=== PATIENT | female | born 1935 | race Caucasian/White ===

== ENCOUNTER 2018-07-14 15:15 | Inpatient (IN) ==
[2018-07-14 16:31] LABS: BASO# 0.03 X1000 (0.0-0.2); BASO% 0.4 % (0.0-0.8); EOS# 0.17 X1000 (0.0-0.7); EOS% 2.4 % (0.0-10.0); HEMATOCRIT 33.3 % (37.0-47.0); HEMOGLOBIN 10.2 g/dL (12.0-16.0); IMM GRAN# 0.01 X1000 (0.0-0.04); IMM GRAN% 0.1 % (0.0-0.5); LYMPH# 1.23 X1000 (1.2-3.4); LYMPH% 17.5 % (20.5-51.1); MCH 29.7 PG (27-31); MCHC 30.6 g/dL (33-37); MCV 96.8 FL (81-99); MONO# 0.35 X1000 (0.11-0.59); NEUT# 5.23 X1000 (1.4-6.5); NEUT% 74.6 % (42.2-75.2); PLT 173 X1000 (130-400); RBC 3.44 XMIL (4.2-5.4); RDW 16.1 % (11.5-14.5); WBC 7.02 X1000 (4.8-10.8)
[2018-07-14 16:53] LABS: ALBUMIN 3.6 g/dL (3.5-5.0); CALCIUM 10.3 mg/dL (8.8-10.2); CREATININE 2.6 mg/dL (0.5-0.9); POTASSIUM 5.2 mmol/L (3.5-5.1); TOTAL BILIRUBIN 0.3 mg/dL (0.20-1.00); TOTAL PROTEIN 6.7 g/dL (6.3-8.3)
[2018-07-14 17:59] LABS: URINE SOURCE CLEAN CATCH
[2018-07-14 18:15] LABS: BILIRUBIN URINE NEGATIVE (NEGATIVE); BLOOD URINE NEGATIVE (NEGATIVE); CLARITY CLEAR (CLEAR); COLOR YELLOW; GLUCOSE URINE NEGATIVE (NEGATIVE); KETONE URINE TRACE mg/dL (NEGATIVE); LEUKOCYTES URINE 2+ (NEGATIVE); NITRITE URINE NEGATIVE (NEGATIVE); PROTEIN URINE 1+(30 mg/dL) mg/dL (NEGATIVE); UROBILINOGEN URINE NORMAL
[2018-07-14 18:19] LABS: URINE EPITHELIAL CELLS >10 /HPF (<10); URINE RBC <10 /HPF (<10); URINE WBC 20-40 /HPF (<10)
[2018-07-14 18:20] LABS: URINE BACTERIA 1+ /HFP; URINE CAST NONE SEEN /LPF; URINE CRYSTAL NONE SEEN /HPF; URINE SMALL ROUND CELLS TRANSITIONAL PRESENT; URINE YEAST NONE SEEN /HPF
[2018-07-14 19:31] LABS: BE -5.3 mmoll (-3.0-3.0); BLOOD TYPE ARTERIAL; HCO3-(ACT) 20.6 mmoll (20.0-26.0); METHB 0.7 % (0.0-1.5); O2(CT) 12.5 mL/dL (15.0-23.0); PCO2(98.6) 50 mmHg (35-45); PO2(98.6) 50 mmHg (60-100); SAMPLE BLOOD; SAO2 91.2 % (95.0-100.0); THB 10.1 g/dL (11.5-17.4); pH(98.6) 7.25 (7.35-7.45)
[2018-07-14 19:34] LABS: ALLEN TEST YES; MODALITY ROOM AIR; O2HB 88.2 % (95.0-99.0)
--- NOTE | 2018-07-14 20:13 | Diag Imaging Result Doc PS360 ---
EXAM: CHEST-PORTABLE 07/14/2018 HISTORY: weak TECHNIQUE: AP portable at 1952 COMMENT: The inspiration is less optimal than on 08/11/2017. There is patchy ill-defined opacity bilaterally which was not present previously. The heart and pulmonary vascularity are stable in appearance. IMPRESSION: Pulmonary edema and/or pneumonia. Electronically signed by Boris De Leon 07/14/2018 8:10 PM
[2018-07-14] MEDS ORDERED: TYLENOL PO PRN (22:44)
[2018-07-14] MEDS ORDERED: ZOFRAN IV PRN (22:44)
[2018-07-15 07:31] LABS: ALBUMIN 3.5 g/dL (3.5-5.0); CALCIUM 10.3 mg/dL (8.8-10.2); CREATININE 2.6 mg/dL (0.5-0.9); MAGNESIUM 1.1 mg/dL (1.5-2.7); POTASSIUM 5.5 mmol/L (3.5-5.1); TOTAL BILIRUBIN 0.4 mg/dL (0.20-1.00); TOTAL PROTEIN 6.4 g/dL (6.3-8.3)
[2018-07-15 07:44] LABS: HEMATOCRIT 32.4 % (37.0-47.0); MCH 30.1 PG (27-31); MCHC 30.9 g/dL (33-37); MCV 97.6 FL (81-99); MPV 10.7 FL (7.4-10.4); RBC 3.32 XMIL (4.2-5.4); RDW 16.1 % (11.5-14.5); WBC 7.13 X1000 (4.8-10.8)
[2018-07-15 07:45] LABS: INR 4.2; PROTIME 42.4 Seconds (11.0-16.0)
[2018-07-15] MEDS ORDERED: NS 1,000 ML IV SCH ×2 (08:15→09:26)
--- NOTE | 2018-07-15 09:01 | EKG Report ---
Test Performed on : 07/14/2018 5:15:37 PM Test Reason : weakness Blood Pressure : / mmHG Vent. Rate : 073 BPM Atrial Rate : 394 BPM P-R Int : 000 ms QRS Dur : 128 ms QT Int : 414 ms P-R-T Axes : 000 004 140 degrees QTc Int : 456 ms Atrial fibrillation. Left bundle branch block Abnormal ECG When compared with ECG of 12-AUG-2017 22:33, Atrial fibrillation. has replaced Sinus rhythm. Vent. rate has decreased BY 60 BPM Left bundle branch block is now present Criteria for Septal infarct are no longer present Borderline criteria for Lateral infarct are no longer present Unconfirmed Result
[2018-07-15] MEDS ORDERED: MAGNESIUM SULFATE 4 GM/S.W.I. 4 GM/100 ML IVPB IV ONE (10:04)
[2018-07-15] MEDS ORDERED: DUONEB (A & A) INH PRN (10:04)
[2018-07-15] MEDS: DUONEB (A & A) INH SCH ×4 (11:05→23:07)
--- NOTE | 2018-07-15 11:08 | Diag Imaging Result Doc PS360 ---
EXAM: CT HEAD W/O CONTRAST INDICATION: ams TECHNIQUE: This exam was performed using automated exposure control, adjustment of mA or kV according to patient size, and/or use of iterative reconstruction technique. COMPARISON: None. FINDINGS: There is patchy low attenuation in the periventricular and subcortical white matter suggesting advanced microangiopathy. There is a likely chronic lacunar infarct involving the internal capsule on the right. There is no definite acute infarct given the limited sensitivity of CT versus MRI. There is no discrete intracranial mass, mass effect, or intracranial hemorrhage. There is minimal chronic appearing axillary sinus mucosal thickening. Surrounding soft tissues and bony structures are grossly unremarkable, otherwise. IMPRESSION: Advanced chronic appearing white matter changes. No definite acute intracranial pathology by CT. Electronically signed by Akash Mckeon 07/15/2018 11:05 AM
--- NOTE | 2018-07-15 11:12 | Diag Imaging Result Doc PS360 ---
EXAM: FLAT/UPRIGHT ABD/1 VIEW CHEST INDICATION: chf evaluation, diarrhea, abd distention TECHNIQUE: 4 views COMPARISON: Chest radiograph dated 07/14/2018 FINDINGS: There is advanced spondylosis. There are nonspecific bowel gas and stool patterns. There is patchy small bowel gas on the right with no significant distention. There is no evidence of large volume free abdominal gas. There is no evidence of organomegaly. There is interstitial thickening that is similar to the previous study suggesting mild edema. There has also now blunting of the costophrenic angles suggesting small effusions. There is increased atelectasis and/or infiltrate at the lung bases. No other new consolidations are identified. Cardiac silhouette is stable. IMPRESSION: 1.Nonspecific abdomen as described. 2.Likely development of small effusions with worsened bibasilar atelectasis and/or infiltrate. Electronically signed by Akash Mckeon 07/15/2018 11:09 AM
[2018-07-15 11:27] LABS: HEMOGLOBIN A1C 5.9 % (4.8-6.0)
[2018-07-15] MEDS: ASPIRIN PO SCH (12:00)
[2018-07-15 12:09] LABS: BE -6.8 mmoll (-3.0-3.0); BLOOD TYPE ARTERIAL; METHB 1.3 % (0.0-1.5); O2(CT) 12.6 mL/dL (15.0-23.0); O2HB 93.8 % (95.0-99.0); PCO2(98.6) 62 mmHg (35-45); PO2(98.6) 73 mmHg (60-100); SAMPLE BLOOD; SAO2 97.6 % (95.0-100.0); THB 9.5 g/dL (11.5-17.4)
[2018-07-15 12:25] LABS: pH(98.6) 7.16 (7.35-7.45)
[2018-07-15 12:26] LABS: ALLEN TEST YES; HCO3-(ACT) 19.6 mmoll (20.0-26.0); MODALITY CANNULA
[2018-07-15] MEDS ORDERED: MAGNESIUM SULFATE 2 GM/S.W.I. 2 GM/50 ML IVPB IV ONE (12:30)
--- NOTE | 2018-07-15 13:28 | Diag Imaging Result Doc PS360 ---
EXAM: US RENAL 2 (RETROPER) COMPLETE 07/15/2018 HISTORY: akosua on ckd TECHNIQUE: Renal ultrasound COMMENT: The bladder is nondistended. There is no evidence of hydronephrosis or mass in the kidneys. The right kidney is 10.3 x 4.7 x 5.4 cm the left is 10.4 x 4.7 x 5.6 cm. The cortices are slightly hyperechoic. IMPRESSION: No evidence of obstructive uropathy. Medical renal disease. Electronically signed by Boris De Leon 07/15/2018 1:26 PM
--- NOTE | 2018-07-15 16:00 | HISTORY AND PHYSICAL ---
PRIMARY CARE PROVIDER: Dr. Hosea Ryan. CHIEF COMPLAINT: Altered mental status. HISTORY OF PRESENT ILLNESS: Mrs. Hunt is a very pleasant 83-year-old female with a history of CKD, chronic atrial fibrillation on anticoagulation, hypothyroidism, who presented to our ER last night with weakness and confusion. Mrs. Hunt, herself, is a poor historian and is somewhat lethargic at this time. She cannot give history. Daughter, who is very knowledgeable of her history, is able to answer questions in detail. Mrs. Hunt has been having increasing lower extremity edema and weakness, she went to Dr. Ryan's office on Thursday and was given increasing doses of Lasix for the edema. She was subsequently called the next day with reports of dehydration and Lasix was discontinued and p.o. fluids were encouraged. Since that time, she has had increasing confusion and worsening lethargy. Throughout the day yesterday Mrs. Hunt's daughter kept receiving calls from home health saying that they could not get Mrs. Hunt out of the bed. She was too sleepy and sedate. So, Mrs. Hunt's daughter finally brought her to the ER. In the ER, she had labs and diagnostics done. Chest x-ray showed pulmonary edema. She had a proBNP of 3400. She had a creatinine of 2.6 and some anemia. Her INR was noted to be 4.2. She was hypoxic with a combined metabolic and respiratory acidosis. Her hemodynamics are stable at this time. She will be admitted for further treatment and evaluation. PAST MEDICAL HISTORY: 1. Chronic kidney disease: Based on history looks to be stages 3 to 4. 2. Chronic atrial fibrillation, on anticoagulation. 3. Left bundle branch block. 4. Borderline diabetes mellitus. 5. Hypertension. 6. Hypothyroidism. 7. Questionable leaky valve. 8. Peripheral neuropathy. PAST SURGICAL HISTORY: She has had some type of colon blockage procedure secondary to obstruction, back surgery x3, hemorrhoidectomy, cholecystectomy. SOCIAL HISTORY: She is recently . She denies tobacco, alcohol, or drug use. She lives alone but her daughter lives right next door. Her daughter is very supportive. FAMILY HISTORY: Noncontributory. REVIEW OF SYSTEMS: Unable to obtain. ALLERGIES: Latex. HOME MEDICATIONS: Allopurinol 300 mg in the a.m., [place] thyroid 30 mg daily, Coumadin 5 mg at bedtime, Lexapro 10 mg daily, memantine 5 mg b.i.d., omeprazole 40 mg daily, Relafen 600 mg daily, triamterene/hydrochlorothiazide one every other day, Welchol 625 mg b.i.d., Zaroxolyn 2.5 mg p.o. a.m., Lyrica 150 mg daily, Neurontin 600 mg p.o. at bedtime. PHYSICAL EXAMINATION: VITAL SIGNS: Blood pressure 111/52, heart rate 77, respiratory rate 20, O2 saturation 95% on 3 L, temperature is 97.4. GENERAL: This is an obese female lying in hospital bed in no acute distress. NEUROLOGICAL: She is quite lethargic. She is sleepy and only opens eyes to verbal stimulus. She is able to tell us where she is but cannot tell us the date nor the current President. She does follow commands without overt focal deficit. She has trouble with random alternating movements and finger to nose. She also has a mild left hand drift on Romberg test. Sensation is intact bilaterally without difference. HEENT: Head is atraumatic and normocephalic. Her pupils are two mm and sluggish bilaterally. Oral mucosa is moist. NECK: Trachea is midline. Neck is supple. There is no cervical adenopathy. CHEST: Decreased at the bases with fine basilar crackles bilaterally. CARDIOVASCULAR: Irregular rate and rhythm. S1 and S2 is noted. There is a 1/6 murmur noted. GASTROINTESTINAL: Slightly distended but nontender. Bowel sounds are hypoactive. EXTREMITIES: 2+ pitting edema bilaterally. DIAGNOSTIC DATA: Morning diagnostics, EKG with atrial fibrillation and left bundle branch block. WBC 7.13, hemoglobin 10, hematocrit 32.4, platelet count 168,000, INR 4.2. ABG yesterday evening - pH 7.25, CO2 50, O2 50, bicarb 20.6, oxyhemoglobin 88.2. Sodium 136, potassium 5.5, chloride 106, C02 22, anion gap 8, BUN 48, creatinine 2.6, glucose 139. Calcium 10.3. Magnesium 1.1. AST 13, ALT 13, and alkaline phosphatase 121. TSH 2.85. UA yesterday evening did not have UTI. ASSESSMENT AND PLAN: 1. Encephalopathy: Unclear as to the etiology. She was hypoxic on arrival to the emergency room yesterday but has since had oxygen. There is no real evidence of infection at this time. We will order a STAT head CT to evaluate for intracranial pathology. Will monitor neuro checks and ultimately check an echocardiogram and carotid ultrasound. 2. Acute kidney injury on chronic kidney disease: There is no renal imaging with ultrasound in her history so we will order a renal ultrasound to look for any type of obstruction. We will also order urine electrolytes as well as an echocardiogram. On physical exam she seems to be volume overloaded. She is slightly acidotic and anemic. Will follow her renal function closely and imaging and go from there. 3. Apparent congestive heart failure: The patient has evidence of pulmonary edema, lower extremity edema, orthopnea, and dyspnea on exertion. Will check an echocardiogram and trend cardiac enzymes. She may need cardiac evaluation but ultimately we can hold on this for now until thorough evaluation has been completed. We will check another chest x- ray and proBNP now. 4. Chronic atrial fibrillation with coagulopathy: No evidence of bleeding at this time. Will hold her Coumadin and monitor daily INR. Atrial fibrillation is rate controlled. TSH within normal limits. Echo is pending. 5. Hypoxemic respiratory failure: The patient had a paO2 of 50 yesterday evening in the emergency room. She has since been put on oxygen. This is likely secondary to her pulmonary edema. We are rechecking a chest x-ray and arterial blood gas now. Again, there does not appear to be any type of infectious process. 6. Borderline diabetes mellitus: Will check a hemoglobin A1c. If needed, add patterned sugars sliding scale insulin. 7. Deep venous thrombosis prophylaxis: Provided with her elevated INR and Coumadin use. Will check INR daily. Once she is normalized will restart her Coumadin. Further recommendations to follow. Dictated by DANIELE Sandoval for Som Curry MD cc: DANIELE Sandoval MD Rodney W. Harney, MD MTDD
[2018-07-15] MEDS ORDERED: ALBUMIN 25% IV ONE (16:17)
[2018-07-15 16:18] LABS: BE -6.4 mmoll (-3.0-3.0); BLOOD TYPE ARTERIAL; HCO3-(ACT) 19.9 mmoll (20.0-26.0); METHB 1.1 % (0.0-1.5); O2(CT) 13.8 mL/dL (15.0-23.0); O2HB 96.2 % (95.0-99.0); PO2(98.6) 149 mmHg (60-100); SAMPLE BLOOD; SAO2 100.1 % (95.0-100.0); SRATE 20 BPM
[2018-07-15 16:22] LABS: pH(98.6) 7.13 (7.35-7.45)
[2018-07-15 16:22] LABS: CALCIUM 10.4 mg/dL (8.8-10.2); CREATININE 2.6 mg/dL (0.5-0.9); MAGNESIUM 2.8 mg/dL (1.5-2.7); POTASSIUM 5.6 mmol/L (3.5-5.1)
[2018-07-15 16:23] LABS: ALLEN TEST YES; MODALITY BI PAP; PCO2(98.6) 70 mmHg (35-45)
--- NOTE | 2018-07-15 22:39 | HISTORY AND PHYSICAL ---
ADDENDUM: Patient seen and examined by myself. Full note dictated and discussed with nurse practitioner. The patient presented to the hospital with increased work of breathing, shortness of breath, and altered mental status. We will admit to the hospital. Have discussed with Dr. Ryan, primary care, the patient's clinical course. She was recently volume overloaded and was given some Lasix. She has also been very depressed over her passing approximately a year ago. It does appears though she has a urinary tract infection. We will admit her to the hospital, place her on antibiotics. We will follow up her acidosis. cc: Som Curry MD MTDD
[2018-07-16] MEDS: DUONEB (A & A) INH SCH ×6 (03:12→22:41)
[2018-07-16 04:13] LABS: BE -7.2 mmoll (-3.0-3.0); BLOOD TYPE ARTERIAL; HCO3-(ACT) 19.3 mmoll (20.0-26.0); METHB 0.6 % (0.0-1.5); O2(CT) 14.2 mL/dL (15.0-23.0); O2HB 97.5 % (95.0-99.0); PO2(98.6) 171 mmHg (60-100); SAMPLE BLOOD; SAO2 100.5 % (95.0-100.0); SRATE 20 BPM; THB 10.1 g/dL (11.5-17.4)
[2018-07-16 04:17] LABS: PCO2(98.6) 74 mmHg (35-45)
[2018-07-16 04:18] LABS: ALLEN TEST YES; MODALITY BI PAP
[2018-07-16 07:04] LABS: HEMOGLOBIN 10.3 g/dL (12.0-16.0); MCH 29.8 PG (27-31); MCHC 30.3 g/dL (33-37); MCV 98.3 FL (81-99); MPV 10.7 FL (7.4-10.4); RBC 3.46 XMIL (4.2-5.4); RDW 16.1 % (11.5-14.5); WBC 9.26 X1000 (4.8-10.8)
[2018-07-16 07:21] LABS: ALBUMIN 3.6 g/dL (3.5-5.0); CALCIUM 10.5 mg/dL (8.8-10.2); CREATININE 3.4 mg/dL (0.5-0.9); MAGNESIUM 2.4 mg/dL (1.5-2.7); POTASSIUM 5.6 mmol/L (3.5-5.1); TOTAL BILIRUBIN 0.4 mg/dL (0.20-1.00); TOTAL PROTEIN 6.4 g/dL (6.3-8.3)
[2018-07-16 07:42] LABS: INR 4.06
[2018-07-16 07:49] LABS: PROTIME 41.3 Seconds (11.0-16.0)
--- NOTE | 2018-07-16 07:50 | Diag Imaging Result Doc PS360 ---
EXAM: CHEST-PORTABLE - 07/16/2018 HISTORY: dyspnea TECHNIQUE: Portable chest COMPARISON: 07/15/2018 FINDINGS: Heart size appears borderline enlarged and stable. There are ill-defined basilar infiltrates, atelectasis, and/or edema which appear to have increased mildly. Upper lung pulmonary vasculature does not appear grossly congested. There is no large pleural effusion identified. Small pleural effusions cannot be excluded. There is no pneumothorax identified. IMPRESSION: Mild increase in basilar opacities. Electronically signed by Jimbo Ji 07/16/2018 7:47 AM
[2018-07-16] MEDS ORDERED: ZOFRAN IV PRN (08:49)
[2018-07-16] MEDS ORDERED: TYLENOL PO PRN (08:49)
[2018-07-16] MEDS ORDERED: NS 1,000 ML IV SCH (09:00)
[2018-07-16] MEDS: ASPIRIN PO SCH (09:28)
[2018-07-16] MEDS: ROCEPHIN 1 GM in NS 50 ML IV SCH (09:42)
[2018-07-16 16:50] LABS: BE -7.8 mmoll (-3.0-3.0); BLOOD TYPE ARTERIAL; HCO3-(ACT) 18.7 mmoll (20.0-26.0); METHB 1.1 % (0.0-1.5); PCO2(98.6) 42 mmHg (35-45); PO2(98.6) 51 mmHg (60-100); SAMPLE BLOOD; SAO2 91.6 % (95.0-100.0); THB 10.4 g/dL (11.5-17.4); pH(98.6) 7.26 (7.35-7.45)
[2018-07-16 16:54] LABS: O2HB 88.5 % (95.0-99.0)
[2018-07-16 16:55] LABS: ALLEN TEST YES; MODALITY CANNULA
--- NOTE | 2018-07-16 21:11 | NEPHROLOGY CONSULTATION ---
DATE: 07/16/2018 REASON FOR CONSULTATION: Acute kidney injury overlying chronic kidney disease. HISTORY OF PRESENT ILLNESS: Ms. Hunt is an 83-year-old white female with history of hypertension and hypothyroidism and diabetes. Chart review finds significant chronic kidney disease, likely stage 4 with baseline creatinine approximately 2.5 to 3. She lost her about 1 year ago and lost another close friend within the last several weeks. She has been doing poorly recently with weakness and confusion, and this was episodic. Ultimately, they sought attention with Dr. Ryan, and laboratory data led him to the conclusion that perhaps she was volume contracted. He advised increased p.o. fluids. At the same time, she had edema and had been treated with furosemide. She did not improve and in fact, became more withdrawn, more weak, and difficult to arouse and ultimately was brought to the emergency room. Her initial evaluation performed on the at 1540 found her blood pressure marginal at 101/57 with room air saturation of 92%. She was started on nasal cannula oxygen and had initial blood gas with moderate CO2 retention with CO2 of 50 with pH of 7.25. Her respiratory failure worsened with falling pH and rising pCO2, and she was treated with BiPAP without much improvement. She was DNR so she was put on the floor on BiPAP. This morning, she self-interrupted the BiPAP and declined to restart it. She was actually more comfortable thereafter, and blood gas performed this afternoon found pCO2 of 42 with a pH of 7.26. She is still requiring supplemental oxygen, however. In this context, her creatinine was 2.6 on presentation and has risen to 3.4 today. Baseline creatinine approximately 2 to 2.4, but her creatinine has been as high as 3 in the past. We were asked to assist with her management. Her fluid balance has been held about even since admission, and she is not receiving diuretics. IV fluids were added this afternoon. Unfortunately, she is not able to provide any history. She is disoriented and cannot hold her thoughts together. Whenever I asked about her recent health, she begins telling stories about when her . These also are incongruous. All history is obtained from the daughter. PAST MEDICAL HISTORY: As above. HOME MEDICATIONS: Include omeprazole, Welchol, nabumetone, gabapentin, metolazone, triamterene/hydrochlorothiazide, allopurinol, warfarin, escitalopram, memantine, levothyroxine. ALLERGIES: Latex. SOCIAL HISTORY: She lives alone, but attended by her daughter. No alcohol or tobacco. FAMILY HISTORY: Otherwise noncontributory. REVIEW OF SYSTEMS: Otherwise noncontributory. PHYSICAL EXAMINATION: Blood pressure 103/44, heart rate 64, respirations 22, afebrile.General: Overweight elderly woman, lying in bed. No distress. Skin is warm and dry. Conjunctivae are pink. Pupils are equal. Oropharynx is moist. Dentition normal. Neck is supple. Trachea is midline. Neck vein distention is present with hepatojugular reflux. PMI is not palpable. Regular rate and rhythm with a gallop and systolic murmur. Lungs have equal breath sounds. No crackles or wheezes. Abdomen: Obese soft, nontender. Bowel sounds present. Extremities have 2 to 3+ edema. No clubbing or cyanosis. Neurologic exam is nonfocal, except as above. IMPRESSION: Acute kidney injury overlying chronic kidney disease. Her urine sodium is low and FENa is low, suggesting prerenal physiology. Her renal ultrasound shows a 10.3 cm right kidney and a 10.4 cm left kidney. She has really modest urine protein. Taken together, I expect that her primary cause of acute kidney injury is cardiogenic in origin. I do not think more IV fluids will be helpful, so those were discontinued. Her Lasix is on hold right now, which I think is appropriate. We will await her echocardiogram to assess her LV function. Her medications were reviewed but no changes were made. I agree with discontinuation of her nonsteroidal anti-inflammatory drug and her diuretics for now. cc: MD ARSLAN Du
--- NOTE | 2018-07-16 21:47 | PROGRESS NOTE ---
DATE: 07/16/2018 SUBJECTIVE: Patient is quite somnolent although she does arouse to noxious stimuli. PHYSICAL EXAM: Vital Signs: Temperature 97.7, pulse 65, respiratory rate 18, BP 100/41. General: Patient is awake when stimulated and frequently falls back to sleep. Currently on BiPAP. He is in mild respiratory distress. Has very shallow breathing. HEENT: Normocephalic. Neck: Supple. Cardiovascular: Regular rate. No murmurs. Chest: Very shallow breathing. No wheezing. No crackles. Abdomen: Soft, obese, nondistended. Extremities: Moves all extremities. Neurologic: Patient is easily awakened but falls asleep quickly. ASSESSMENT: 1. Metabolic encephalopathy. 2. Hypercapnic respiratory failure. 3. Hyperkalemia. 4. Acute on chronic renal failure. Creatinine continues to climb, at 3.4. 5. Hyperglycemia. 6. Chronic atrial fibrillation with coagulopathy. 7. Hyperglycemia. PLAN: Will restart patient's IV fluids as her BUN and creatinine both continue to climb, although slightly. She does not wake up and eat or drink anything. Did attempt again to discuss with Ms. Hunt's daughter the gravity of her situation. Her daughter does not appear to grasp this. I discussed with her the BiPAP is also an extra heroic measure. We will continue to attempt to awaken her. I am certainly concerned that her overall depressive symptoms may be worsening her current respiratory drive. cc: Som Curry MD
--- NOTE | 2018-07-16 23:37 | ECHO REPORT ---
ORDER DATE: 07/16/2018 MEASUREMENTS: Septal thickness 1.1, left ventricular internal diameter in diastole 4.0, posterior wall thickness 1.0, left ventricular internal diameter in systole 2.4, left atrium 3.4, aortic root 3.0. SUMMARY: 1. Technically difficult study due to limited acoustic window quality. Intravenous echocontrast agent Optison was utilized to enhance endocardial definition. 2. Mild sclerosis of trileaflet aortic valve demonstrated, with adequate aortic valve opening evident. Peak gradient across the aortic valve is 12 mmHg. There is trace aortic regurgitation. Mild thickening of mitral valve leaflets demonstrated, with adequate mitral valve opening evident. Tricuspid and pulmonic valves are without evidence of structural abnormality, with very mild tricuspid regurgitation and trace pulmonic insufficiency. The estimated systolic PA pressure by Doppler is 35 mmHg. The aortic root is normal in size. 3. Normal left ventricular dimensions demonstrated. Estimated left ventricular ejection fraction appears to be at least 65%. No regional wall motion abnormalities are evident. Left atrium is normal in size. The right atrium and right ventricle are grossly normal in size. 4. No pericardial effusion. 5. Appearance of inferior vena cava suggests elevated central venous pressure. 6. Rhythm during study appears to be atrial fibrillation. CONCLUSIONS: 1. Technically difficult study. 2. Mild aortic valve sclerosis without stenosis, with trace aortic regurgitation. 3. Very mild tricuspid regurgitation, with estimated systolic pulmonary artery pressure 35 mmHg. 4. Estimated left ventricular ejection fraction at least 65%. 5. Elevated central venous pressure suggested. 6. Rhythm during study appears to be atrial fibrillation. cc: MD Pastor Velez CRNP
[2018-07-17] MEDS: DUONEB (A & A) INH SCH ×5 (02:43→20:23)
[2018-07-17 06:35] LABS: HEMATOCRIT 30.5 % (37.0-47.0); HEMOGLOBIN 9.3 g/dL (12.0-16.0); MCH 29.4 PG (27-31); MCHC 30.5 g/dL (33-37); MCV 96.5 FL (81-99); MPV 11.1 FL (7.4-10.4); RBC 3.16 XMIL (4.2-5.4); RDW 15.8 % (11.5-14.5); WBC 8.36 X1000 (4.8-10.8)
[2018-07-17 06:49] LABS: INR 4.11
[2018-07-17 07:03] LABS: ALBUMIN 3.5 g/dL (3.5-5.0); CALCIUM 9.3 mg/dL (8.8-10.2); CREATININE 4.4 mg/dL (0.5-0.9); PHOSPHORUS 5.1 mg/dL (2.7-4.5); POTASSIUM 5.1 mmol/L (3.5-5.1)
[2018-07-17 07:21] LABS: PROTIME 41.7 Seconds (11.0-16.0)
[2018-07-17] MEDS: ASPIRIN PO SCH (08:08)
[2018-07-17] MEDS: CLINDAMYCIN 600 MG/D5W 600 MG/50 ML IVPB IV SCH ×3 (08:08→16:34)
[2018-07-17] MEDS: ROCEPHIN 1 GM in NS 50 ML IV SCH (08:09)
--- NOTE | 2018-07-17 14:45 | NEPHROLOGY PROGRESS NOTE ---
DATE: 07/17/2018 IMPRESSION AND PLAN.: I have reviewed Ms. Hunt's exam and laboratory data for this morning. Though I expected that she may have cardiorenal syndrome and cardiogenic shock, her LVEF was normal. Filling pressures appear to be above normal. As such, I do not think giving IV fluids will be helpful. Furthermore, diuretic therapy would not particularly add anything as her respiratory status is improved. Her mental status is worse today. She is somnolent. She will arouse with verbal and tactile stimuli, but immediately closes her eyes again and she is nonverbal. Her creatinine has risen 1 point over the last 24 hours suggesting that she has essentially anuric renal failure. Given all the above, she presumably has acute tubular necrosis overlying her stage IV chronic kidney disease. I had a prolonged conversation with both daughters discussing her current status and our treatment options moving forward. Given her poor functional status and her advanced chronic kidney disease at baseline, her likelihood of recovery from acute kidney injury is below average. Also, her capacity to undergo dialysis and to experience reasonable recovery following a prolonged hospitalization and rehabilitation is low. Given that, I do not think dialysis would improve her outcome in a way that outweighs the costs in terms of pain and suffering in the short term and poor recovery in the longterm. As such, I do not recommend pursuing hemodialysis. However, given her declining functional status and anuric acute kidney injury, she is likely to have progressive uremia and within days. Again, we discussed this frankly. I also discussed the role of cardiopulmonary resuscitation given the status of her kidney disease. They understand that CPR and respiratory support and cardiac defibrillation does not make sense, and we will change her status to DNR 1. I recommended that we continue the current level of care, that we should limit her blood draws to once a day. Continue antibiotics, oxygen, pulmonary toilet, etc. They are in agreement with these constraints. cc: Luis Neumann MD
--- NOTE | 2018-07-17 17:17 | PROGRESS NOTE ---
DATE: 07/17/2018 SUBJECTIVE: Patient herself has no complaints. She is easily awakened but then falls back asleep pretty quickly. PHYSICAL EXAMINATION: Vital Signs: Reviewed. Temp 97.4 degrees, pulse 60, respiratory 20, BP 100/41. General: Patient is awake, very pleasant when she is awake. HEENT: Normocephalic. Neck: Supple. CARDIOVASCULAR: Regular rate. Chest: Decreased breath sounds but equal bilaterally. Abdomen: Soft, obese. Extremities: She does move all extremities. She has no focal weakness. Neurologic: Patient is somnolent, will arouse when stimulated but quickly falls back asleep. ASSESSMENT: 1. DNR level 1. 2. Chronic kidney disease with acute renal failure. 3. Diabetes. 4. Respiratory failure. 5. Adult failure to thrive. 6. Hypertension. 7. Hypothyroidism. PLAN: We will continue patient in the hospital. Discussed her current care with Nephrology who feels as though she is an acute renal failure and certainly could be developing uremia. Very concerned that Ms. Hunt will not improve from her current situation. We will continue to follow. Discussed with the daughter on multiple occasions the severity of Ms. Hunt's current condition. They have decided to change from DNR 2 to a full DNR. We will continue to follow and adjust as needed. cc: Som Curry MD
[2018-07-18] MEDS: DUONEB (A & A) INH SCH ×7 (00:24→23:17)
[2018-07-18] MEDS: CLINDAMYCIN 600 MG/D5W 600 MG/50 ML IVPB IV SCH ×4 (01:09→23:39)
[2018-07-18 07:02] LABS: HEMATOCRIT 30.8 % (37.0-47.0); HEMOGLOBIN 9.4 g/dL (12.0-16.0); MCH 29.6 PG (27-31); MCHC 30.5 g/dL (33-37); MCV 96.9 FL (81-99); MPV 11.2 FL (7.4-10.4); RBC 3.18 XMIL (4.2-5.4); RDW 15.8 % (11.5-14.5); WBC 8.61 X1000 (4.8-10.8)
--- NOTE | 2018-07-18 07:25 | Diag Imaging Result Doc PS360 ---
EXAM: CHEST-PORTABLE HISTORY: Dyspnea TECHNIQUE: Portable chest single view COMPARISON: 07/16/2018 FINDINGS: Good inspiratory effort. The heart remains enlarged. Pulmonary edema persists. There is a small left pleural effusion with basilar atelectasis. There may be underlying infiltrates as well. IMPRESSION: No interval improvement. Electronically signed by Rick Fernandes 07/18/2018 7:23 AM
[2018-07-18 07:54] LABS: ALBUMIN 3.4 g/dL (3.5-5.0); CALCIUM 9.4 mg/dL (8.8-10.2); CREATININE 4.9 mg/dL (0.5-0.9); PHOSPHORUS 6.8 mg/dL (2.7-4.5); POTASSIUM 5.6 mmol/L (3.5-5.1)
[2018-07-18 07:59] LABS: INR 4.39; PROTIME 43.9 Seconds (11.0-16.0)
[2018-07-18] MEDS: ROCEPHIN 1 GM in NS 50 ML IV SCH (10:52)
[2018-07-18] MEDS: ASPIRIN PO SCH (18:39)
--- NOTE | 2018-07-18 22:34 | PROGRESS NOTE ---
DATE: 07/18/2018 SUBJECTIVE: Patient actually is much more alert today. She does arouse to verbal stimuli and does actually respond to questions briefly. PHYSICAL EXAMINATION: Vital Signs: Temperature 97.4 degrees, pulse 65, respiratory 18, BP 91/54, saturation 93% on 4 L. General: Patient is awake, obese female who currently is in no respiratory distress. HEENT: Normocephalic. Neck: Supple. Cardiovascular: Regular rate. Chest: Decreased but equal breath sounds. Nonlabored. Abdomen: Soft. Extremities: Moves all extremities. ASSESSMENT: 1. Acute on chronic renal failure. The patient's renal function continues to worsen. 2. Hypoxic respiratory failure. 3. Hyperkalemia. 4. Chronic atrial fibrillation with coagulopathy. PLAN: Continue patient in the hospital. Continue to attempt comfort care and we will follow. cc: Som Curry MD
[2018-07-19] MEDS: DUONEB (A & A) INH SCH ×4 (03:27→15:48)
[2018-07-19] MEDS ORDERED: SALINE LOCK IV FLUID XX ONE (10:35)
[2018-07-19] MEDS ORDERED: MORPHINE IV PRN ×2 (10:37→19:10)
[2018-07-19] MEDS: TRANSDERM-SCOP TD SCH (13:27)
--- NOTE | 2018-07-19 15:46 | PROVIDER DOCUMENTATION ---
This chart was entered by Laura Moran Scribe, acting as scribe for Chava Leavitt MD. HPI-General Adult - General Chief Complaint: General Adult Stated Complaint: GENERAL ADULT Time Seen by Provider: 07/14/18 19:11 Source: patient, family Allergies/Adverse Reactions: Patient Allergies Allergy/AdvReac Type Severity Reaction Status Date / Time latex Allergy RASH Verified 07/14/18 15:51 Home Medications: Home Medication List Medication Instructions Recorded Confirmed Last Taken Type Colesevelam [Welchol] 625 mg PO BID 05/31/14 07/14/18 07/14/18 History 625mg Omeprazole 40 mg PO DAILY@0700 05/31/14 07/14/18 07/14/18 History 40mg Nabumetone [Relafen] 600 mg PO DAILY 08/12/17 07/14/18 07/14/18 History 600mg Gabapentin [Neurontin] 600 mg PO QHS #30 tab 08/17/17 07/14/18 07/13/18 Rx 600mg Pregabalin [Lyrica] 150 mg PO DAILY capsule 08/19/17 07/14/18 07/14/18 Rx 150mg Allopurinol 300 mg PO QAM 07/14/18 07/14/18 07/14/18 History 300mg Metolazone [Zaroxolyn] 2.5 mg PO QAM 07/14/18 07/14/18 07/14/18 History 2.5mg Triamterene/Hydrochlorothiazid 1 ea PO EVERY OTHER DAY 07/14/18 07/14/18 Unknown History [Triamterene-Hctz 37.5-25 mg Cp] Warfarin [Coumadin] 5 mg PO QHS 07/14/18 07/14/18 07/14/18 History 5mg Escitalopram [Lexapro] 10 mg PO DAILY 07/15/18 07/15/18 Unknown History Levothyroxine [Synthroid] 30 mcg PO DAILY 07/15/18 07/15/18 Unknown History Memantine HCl 5 mg PO BID 07/15/18 07/15/18 Unknown History - History of Present Illness -Gen Adult Nature of Presenting Problems: 83 y/o female presents to ED with increasing weakness, confusion, lethargy x 5 days Location of Pain/Injury: reports: generalized Pain Radiation: reports: no radiation Quality of Pain: reports: none Severity: reports: moderate Onset/Duration: reports: 5 days ago Timing: reports: still present Context/Activities at Onset: reports: none Modifying Factors: improves with: nothing Associated Symptoms: reports: weakness, other (lethargy, confusion) Similar Symptoms Previously?: No Recently seen or treated by another doctor?: Yes (PCP) Review of Systems - Adult - REVIEW OF SYSTEMS - ADULT Constitutional: reports: other (confusion, lethargy). denies: chills, fever Eyes: reports: no symptoms reported Ears, Nose, Mouth & Throat: reports: no symptoms reported Cardiovascular: denies: chest pain, palpitations Respiratory: denies: cough, shortness of breath Gastrointestinal: denies: abdominal pain, diarrhea, nausea, vomiting Genitourinary: reports: no symptoms reported Musculoskeletal: denies: back pain, joint pain Integumentary: reports: no symptoms reported Neurological: reports: other (weakness). denies: dizziness/vertigo, seizure Psychiatric: reports: no symptoms reported Endocrine: reports: no symptoms reported Hematologic/Lymphatic: reports: no symptoms reported Allergic/Immunologic: reports: no symptoms reported All Other Systems: Reviewed and Negative Past History - Adult - PAST MEDICAL HISTORY-ADULT Review of Records: reports: Old Records Reviewed, Nursing Assessment Review, Medications Reviewed, Social history reviewed & non-contributory. Major Childhood Illnesses: reports: denies history Cardiovascular: reports: A-Fib, HTN, hyperlipidemia Respiratory: reports: denies history Gastrointestinal: reports: denies history Obstetrical/Gynecological: reports: denies history Genitourinary: reports: denies history, kidney disease Musculoskeletal: reports: denies history, other (neuropathy) Neurological: reports: denies history Endocrine/Immune: reports: Diabetes, thyroid disorder (hypo) Other Conditions: reports: denies history - PRIOR SURGERIES/PROCEDURES Surgical/Procedure History: reports: cholecystectomy, bowel surgery, back/neck (back), other (hemhorrhoidectomy) - IMMUNIZATION STATUS Childhood Immunizations: See Nurse Assessment Flu Vaccine: See Nurse Assessment - FAMILY HISTORY Family History: reviewed, not pertinent - SOCIAL HISTORY Smoking: non-smoker Substance Use: none/never Alcohol Use Frequency: never Living Situation: family Physical Exam-General - PHYSICAL EXAM-ADULT Initial Vital Signs Reviewed: Yes - CONSTITUTIONAL General Appearance: appears well, no apparent distress, obese, lethargic, slow to respond, other (confused) - EYES Eyes: PERRL/EOMI, pink conjunctivae - HEAD, EARS, NOSE, MOUTH & THROAT HENMT: normocephalic/atraumatic, moist mucous membranes, normal ENT inspection - NECK Neck: non-tender, full range of motion - RESPIRATORY Respiratory: chest non-tender, decreased breath sounds (at bases), crackles - CARDIOVASCULAR Cardiovascular: irregularly irregular - GASTROINTESTINAL (ABDOMEN) Abdominal Exam: non tender, soft, abnormal bowel sounds (hypoactive), distended - MUSCULOSKELETAL Back Exam: normal inspection, no CVA tenderness Extremity: normal range of motion, non-tender, swelling (2 plus pitting edema of bilateral lower extremities) - SKIN Integumentary: normal color, warm/dry - NEUROLOGIC Neurologic: grossly normal, other (confused; lethargic) - PSYCHIATRIC Psych/Mental Status: normal mood/affect, other (confused; lethargic) Progress - PLAN OF CARE/RESULTS Progress/Plan/Lab Results: Vital Signs - 8 hr 07/14/18 15:40 07/14/18 18:53 Temperature 98.1 F 98.7 F Pulse Rate 73 74 Respiratory Rate 18 16 Blood Pressure 101/57 108/58 O2 Sat by Pulse Oximetry 92 L 96 Laboratory Results - last 24 hr 07/14/18 07/14/18 07/14/18 16:03 16:03 17:27 WBC 7.02 RBC 3.44 L Hgb 10.2 L Hct 33.3 L MCV 96.8 MCH 29.7 MCHC 30.6 L RDW Std Deviation 16.1 H Plt Count 173 MPV 11.0 H Immature Gran % (Auto) 0.1 Neut % (Auto) 74.6 Lymph % (Auto) 17.[address] [place] % (Auto) 5.0 Eos % (Auto) 2.4 Baso % (Auto) 0.4 Immature Gran # (Auto) 0.01 Neut # (Auto) 5.23 Lymph # (Auto) 1.23 [place] # (Auto) 0.35 Eos # (Auto) 0.17 Baso # (Auto) 0.03 Sodium 136 Potassium 5.2 H Chloride 106 Carbon Dioxide 21 L Anion Gap 9 BUN 47 H Creatinine 2.6 H Estimated GFR/1.73 m2 18 BUN/Creatinine Ratio 18 Glucose 165 H Calculated Osmolality 288 Calcium 10.3 H Total Bilirubin 0.30 AST 14 ALT 13 Alkaline Phosphatase 133 H Total Protein 6.7 Albumin 3.6 Globulin 3.0 Albumin/Globulin Ratio 1.0 Urine Source CLEAN CATCH Urine Color YELLOW Urine Clarity CLEAR Urine pH 5.0 Ur Specific [place] 1.020 Urine Protein 1+(30 mg/dL) A Urine Ketones TRACE Urine Blood NEGATIVE Urine Nitrite NEGATIVE Urine Bilirubin NEGATIVE Urine Urobilinogen NORMAL Urine Microscopic RBC <10 Urine WBC 2+ A Urine Microscopic WBC 20-40 A Ur Epithelial Cells >10 A Urine Crystals NONE SEEN Small Round Cells TRANSITIONAL PRESENT Urine Bacteria 1+ Urine Casts NONE SEEN Urine Yeast NONE SEEN Urine Glucose NEGATIVE Orders Category Date Time Status Oxygen Therapy- ED Nursing DIRECTED Care 07/14/18 18:52 Active CHEST-PORTABLE [RAD] Stat Exams 07/14/18 19:16 Ordered ABG [RESP] Routine Lab 07/14/18 19:16 Ordered BNP [PRO B-NATRIURETIC PEPTIDE] Stat Lab 07/14/18 19:28 Ordered CBC WITH ELECTRONIC DIFF [HEME] Stat Lab 07/14/18 16:03 Completed COMPREHENSIVE METABOLIC PANEL [CHEM] Stat Lab 07/14/18 16:03 Completed OCCULT BLOOD DIAG 1-[address] Stat Lab 07/14/18 19:[address] [URINALYSIS] Stat Lab 07/14/18 17:27 Completed URINE MICROSCOPIC [URINALYSIS] Stat Lab 07/14/18 17:27 Completed Generalized Adult Illness >60 Stat Oth 07/14/18 15:52 Ordered EKG [EKG] Stat Ther 07/14/18 15:52 Ordered Result Diagrams: 07/18/18 06:00 07/18/18 06:00 - EKG 1 Time of EKG reading by physician:: 17:15 EKG Read and Signed by:: Juanjo Clifford EKG Interpretation (*Must complete 3 of following elements*): Abnormal Rate: 73 Rhythm: afib Fulda: normal QRS: LBB NH Interval: normal ST Wave: normal - XRAY 1 XRAY Study: Chest Impression: Abnormal (COMMENT: The inspiration is less optimal than on 08/11/2017. There is patchy ill-defined opacity bilaterally which was not pr esent previously. The heart and pulmonary vascularity are stable in appearance. IMPRESSION: Pulmonary edema and/or pneumonia. Electronically signed by Boris De Leon 07/14/2018 8:10 PM) - CONSULTS/PCP/HOSPITALIST Notification #1 *Consult/PCP/Hospitalist*: Hospitalist Time Discussed: 21:30 Consult Disposition: Admit Departure - Departure Date of Disposition Decision: 07/14/18 Time of Disposition Decision: 21:37 DIAGNOSIS: Confusion Pulmonary edema Qualifiers: Chronicity: acute Qualified Code(s): J81.0 - Acute pulmonary edema Chronic kidney disease (CKD) Qualifiers: Chronic kidney disease stage: unspecified stage Qualified Code(s): N18.9 - Chronic kidney disease, unspecified Disposition: ADMITTED INPATIENT 09 Certified Medical Emergency: Emergent Condition: Stable - Critical Care Note This patient required my direct & personal management of CC.: No Attestation - Physician/ BRENDA Attestation Patient care was provided by Advanced Practice Provider:: No The physician spent face to face time with patient:: Yes Advanced Practice Provider documentation review:: Supervising physician onsite and consulted in the evaluation and care of this patient. The physician did have a face to face encounter with the patient. This chart was documented by the indicated scribe, (Laura Moran Scribe) and accurately reflects the services I performed and decisions made by me, Chava Leavitt MD, as attested by the provider's signature.
[2018-07-19] MEDS ORDERED: NUBAIN IV PRN (16:29)
--- NOTE | 2018-07-19 19:30 | PROGRESS NOTE ---
DATE: 07/19/2018 SUBJECTIVE: The patient has no major complaints. She is resting comfortably. OBJECTIVE: Blood pressure is 106/52, heart rate of 94, respiratory rate of 20, temperature 98.6, saturations are 79-84% on room air but she is not in any particular distress. PROBLEM LIST: Acute on chronic renal failure, coagulopathy, hypoxic respiratory failure likely related to worsening volume overload. Family has elected to pursue comfort care measures. I spoke to the daughter extensively. Unfortunately I remember her from last year when her father, patient's I think I think is Denise Mas her recently passed and was made DNR 2. Any case we are doing comfort care measures. She appears somewhat comfortable. Daughter is very concerned about morphine on her and get a UA, urine culture. The patient is doing okay. We are pursuing comfort care measures, hospice if applicable. I have put in a palliative care consult. Dr. Neumann is aware of the situation. We spoke with Lissette Wray today. She is on comfort measures. is imminent. I do not think family is going to pursue outpatient palliation but we will continue to have discussions with them and see how she does. cc: Lucas Antonio MD
[2018-07-19] MEDS: OFIRMEV 1000 MG/ISOTONIC SOLN 1,000 MG/100 ML BOTTLE IV PRN (19:38)
[2018-07-19] MEDS: NEURONTIN PO SCH (20:09)
[2018-07-20] MEDS ORDERED: ATARAX PO PRN (15:07)
[2018-07-20] MEDS ORDERED: HYDROXYZINE IM PRN (15:59)
--- NOTE | 2018-07-20 20:15 | PROGRESS NOTE ---
DATE: 07/20/2018 SUBJECTIVE: She is sleeping very comfortably. No major complaints. Her family states she is kind of up and down as far as being awake and alert. OBJECTIVE: Blood pressure 109/53. She seems to be comfortable. 84% saturation on room air. Cardiovascular: Regular rhythm. Pulmonary: Bilateral breath sounds. Clear to auscultation. GI: Soft, nontender, nondistended. Bowel sounds are positive. LABORATORY DATA: No new data. Her last creatinine though was around 5. PROBLEM LIST: Acute renal failure with progressive respiratory failure. We are continuing comfort measures. She seems to be comfortable. I have updated the family. Is not a clear decline. Her blood pressure, heart rate all appears to be stable. Her saturations which were much lower yesterday have kind of stabilized although they started dropping again this afternoon so explained to the family. We will continue comfort measures for the time being. Her mental status will likely continue to deteriorate and we will see how she does. cc: Lucas Antonio MD
[2018-07-20] MEDS: NEURONTIN PO SCH (20:51)
[2018-07-21] MEDS: OFIRMEV 1000 MG/ISOTONIC SOLN 1,000 MG/100 ML BOTTLE IV PRN ×2 (08:29→21:06)
--- NOTE | 2018-07-21 18:30 | PROGRESS NOTE ---
DATE: 07/21/2018 SUBJECTIVE: Patient has no major complaints. OBJECTIVE: Blood pressure 108/55, heart rate of 81, respiratory rate 24, temperature 98.8 degrees, 96% on 3 L.Cardiovascular: Regular rate and rhythm. Pulmonary: Bilateral breath sounds clear, diminished at bases. Gastrointestinal: Soft, nontender, nondistended. Bowel sounds are positive. ASSESSMENT AND PLAN: 1. Acute renal failure. 2. Respiratory failure. We are continuing comfort measures. She does appear to be comfortable. Her vital signs are stable, but I think there is a decline. Her saturations are 79% to 80% on room air. It is documented. She is 92% on 3 L. She is ashen. She has not taken anything to eat since Thursday, which was several days ago, so I think she is really at a point where she is declining. I do not think she is going to hold out much longer. We will continue supportive measures. Hospice evaluation in progress. We will continue to follow closely. cc: Lucas Antonio MD
[2018-07-21] MEDS: ATROPINE 1 % OPHTH SOLN SL PRN (21:06)
[2018-07-22] MEDS ORDERED: ATIVAN IV PRN (08:38)
[2018-07-22] MEDS ORDERED: BENADRYL IV PRN (08:38)
[2018-07-22] MEDS: TRANSDERM-SCOP TD SCH (16:38)
--- NOTE | 2018-07-22 19:18 | PROGRESS NOTE ---
DATE: 07/22/2018 SUBJECTIVE: She has no complaints. She seems to be doing okay. She is awake, but saturations are still very low, 88% on 3 L, 85% on room air, so I think she is deteriorating. She had a bad night where she was very confused and agitated, and just could not improve. She got Ativan and has been somewhat sedated since then, but again we are trying to work on that. ASSESSMENT AND PLAN: Acute renal failure and hypoxic respiratory failure. She continues to deteriorate slowly, but I think her prognosis is poor in the short term. We are just going to continue supportive care, comfort care. She does not meet general inpatient care criteria because her symptoms are controlled, and there are also some family issues just with the fact that they are very resistant to take the patient home for hospice. We discussed that we would monitor her throughout the next several days to evaluate for other treatment options and can keep her comfortable, and we will continue to follow. There is a lot of push and pull with the family about, I would not say unrealistic goals, I think the term would be inconsistent. They want her to be comfortable, but then they are not happy when she is too sedated, which is really not able to do both things. There are specific medications they do not want used, but then they want symptom control, but overall they seem understandable in this difficult time, and we will continue comfort care measures and follow. cc: Lucas Antonio MD
[2018-07-22] MEDS: ATROPINE 1 % OPHTH SOLN SL PRN (21:41)
[2018-07-23] MEDS: ATIVAN IV PRN ×2 (06:01→11:33)
[2018-07-23 08:07] VITALS: BP 127/68
--- NOTE | 2018-08-15 20:38 | DISCHARGE SUMMARY ---
ADMISSION DATE: 07/14/2018 DISCHARGE DATE: 07/23/2018 DISCHARGE DIAGNOSES: 1. Acute renal failure. 2. Acute hypoxic respiratory failure. 3. Atrial fibrillation. 4. Hypertension. 5. Encephalopathy. 6. Congestive heart failure. Briefly this is an 83-year-old female, she was admitted per Dr. Curry for altered mental status. She was hypoxic. She had acute renal failure with a creatinine of 2.6 and she was acidotic, anemic. Echocardiogram was obtained which actually showed an EF of 65% so therefore felt to be diastolic. She was in atrial fibrillation. She had progressive renal failure and had a renal consult Nephrology consult. Discussed with daughter who is the main caregiver. She was placed on BiPAP. Nephrology consult was pursued and felt that urine sodium is low, FENa suggesting prerenal, renal ultrasound was negative. Lasix was on hold. Nephrology saw patient again on the and mental status was worse. A creatinine had worsened felt to be acute tubular necrosis in the stage 4 kidney disease. She had poor functional status did not feel like dialysis was appropriate, however he also felt that if she did not have dialysis or declining functional status anuric she would have progressed uremia and within days. She was made a DNR. She was maintained on antibiotics, oxygen treatment. Chest x-ray had pulmonary edema, they continued treatment, on the they had decided that they would continue comfort care measures and that Nephrology had no further to worry. Patient was maintained with comfort measures. There was some concern over her lack of rapid decline and that she would possibly not qualify for GIP but she did end up qualifying for inpatient hospice and was converted over on the , actually near the end of the . Discharge cause of would be acute renal failure, acute tubular necrosis, acute hypoxic respiratory failure, diastolic heart failure. cc: Lucas Antonio MD
== END 2018-07-23 14:36 | disposition hospice, inpatient (51) | DRG 682 ==
LOC: P.ED 15:15 → P.MEDSURG 21:27 → SUATTDRO 21:27 → P.MEDSURG 07-17 15:33
PROVIDERS: ATTEND Internal Medicine
CPT/HCPCS: 70450; 71010; 71045; 74022; 76770; 80048; 80053; 80069; 81001; 81050; 82550; 82570; 82805; 82948; 83036; 83735; 83880; 83935; 83970; 84100; 84155; 84156; 84165; 84166; 84300; 84443; 84484; 84540; 85025; 85027; 85610; 87324; 93005; 93306; 94640; 94660; 94761; 99285; A9270; C8929; J0131; J0696; J2060; J2270; J3475; J7030; P9047; Q9957; XXXXX

== ENCOUNTER 2018-07-23 14:37 | Inpatient (IN) ==
[2018-07-23] MEDS ORDERED: ATIVAN IV PRN (16:15)
[2018-07-23] MEDS ORDERED: ATROPINE 1 % OPHTH SOLN SL PRN (16:15)
[2018-07-23] MEDS ORDERED: OFIRMEV 1000 MG/ISOTONIC SOLN 1,000 MG/100 ML BOTTLE IV PRN (16:15)
[2018-07-23] MEDS ORDERED: TRANSDERM-SCOP TD SCH (16:15)
[2018-07-23] MEDS: MORPHINE IV PRN ×2 (16:58→20:12)
[2018-07-23] MEDS ORDERED: ZOFRAN IV PRN (17:05)
--- NOTE | 2018-07-23 17:23 | PROGRESS NOTE ---
DATE: 07/23/2018 Patient has no major complaints. She has gotten progressively more confused and very short of breath. Her admission diagnoses currently is acute renal failure and acute hypoxic respiratory failure, coagulopathy. She is now having further deterioration and has transitioned to inpatient hospice. We will continue treatment per her hospice service and follow along. We will continue to monitor closely. I have updated the family and they understand what we are doing currently. cc: Lucas Antonio MD
[2018-07-23 21:16] VITALS: BP 82/42
--- NOTE | 2018-08-16 04:38 | DISCHARGE SUMMARY ---
ADMISSION DATE: 07/23/2018 DISCHARGE DATE: 07/23/2018 The patient was admitted for treatment. Patient has a history of acute renal failure. She was evaluated initially on the and then I think she was turned into inpatient hospice care and subsequently I think that evening. The patient had been hospitalized for several days and the patient was stabilized. She had been given comfort care measures and then I think at 23:48 was declared she had . Discharge diagnosis was acute renal failure, progressive hypoxic respiratory failure, coagulopathy. Family aware of the process. cc: Lucas Antonio MD
== END 2018-07-23 23:40 | disposition expired | DRG 189 ==
LOC: P.MEDSURG 14:39
PROVIDERS: ATTEND Internal Medicine
CPT/HCPCS: A9270; J2060; J2270